=== PATIENT | female | born 1965 | race Caucasian/White ===

== ENCOUNTER 2022-09-21 08:15 | Day surgery (SDC) | payer MEDICARE, MEDICAID ==
[~2022-09-21] VITALS: Ht 152.4 cm; Wt 114.8 kg
[~2022-09-21 08:15] MED LIST: CINA60TA PO; ERGO500014 PO; FOLI0.4T6 PO; LEVO50TA8 PO; LORA-512 PO; MULT1TAB71 PO; SEVE800T8 PO
[2022-09-21] MEDS ORDERED: normal saline 1000ml 1,000 ML IV PRN (08:45)
[2022-09-21] MEDS ORDERED: midazolam 1 mg/ML 2ml injection ONE ×2 (08:57→11:05)
[2022-09-21] MEDS ORDERED: fentaNYL/PF 50MCG/1 ML 2ML syringe ONE ×2 (08:57→11:05)
[2022-09-21] MEDS ORDERED: iohexol 300mg/ml 100ml inj. ONE ×2 (08:58→09:52)
[2022-09-21 09:18] LABS: BASOPHILS % (AUTO) 0.6 % (0-1); EOSINOPHILS # (AUTO) 0.1 X10'3 (0-0.9); EOSINOPHILS % (AUTO) 2.4 % (0-6); HEMATOCRIT 32.8 % (35.0-45.0); HEMOGLOBIN 10.9 g/dl (12.0-16.0); LYMPHOCYTES # (AUTO) 1.4 X10'3 (1.1-4.8); LYMPHOCYTES % (AUTO) 40.6 % (21-51); MEAN CORPUSCULAR HEMOGLOBIN 30.7 PG (27.0-31.0); MEAN CORPUSCULAR HGB CONC 33.3 g/dL (33.0-36.5); MEAN CORPUSCULAR VOLUME 92.3 FL (78-98); MEAN PLATELET VOLUME 7.4 FL (7.4-10.4); MONOCYTES # (AUTO) 0.3 X10'3 (0-0.9); MONOCYTES % (AUTO) 7.8 % (2-12); NEUTROPHILS # (AUTO) 1.7 X10'3 (1.8-7.7); NEUTROPHILS % (AUTO) 48.6 % (42-75); PLATELET COUNT 79 X10'3 (140-440); RED BLOOD COUNT 3.55 X10'6 (4.20-5.60); RED CELL DISTRIBUTION WIDTH 16.9 % (11.5-14.5); WHITE BLOOD COUNT 3.4 X10'3 (4.5-11.0)
[2022-09-21 09:22] VITALS: BP 104/48
[2022-09-21 09:22] LABS: ALBUMIN 3.5 G/DL (3.4-5.0); ANION GAP 15 (8-16); BLOOD UREA NITROGEN 58 MG/DL (7-18); BUN/CREATININE RATIO 5.1 (10.0-20.0); CALCIUM 9.4 MG/DL (8.5-10.1); CHLORIDE 98 MMOL/L (99-107); CREATININE 11.35 MG/DL (0.40-0.90); GLUCOSE 192 MG/DL (70-104); POTASSIUM 4.2 MMOL/L (3.5-5.1); SODIUM 139 MMOL/L (135-145); TOTAL CARBON DIOXIDE 25.8 MMOL/L (24-32); eGFR 3 ML/MIN
[2022-09-21] MEDS ORDERED: FOLI1TAB27 PO (09:42)
[2022-09-21] MEDS ORDERED: FERR210T PO (09:42)
[2022-09-21] MEDS ORDERED: LEVO75TA7 PO (09:42)
[2022-09-21] MEDS ORDERED: LORA10TA7 PO (09:42)
[2022-09-21] MEDS ORDERED: OMEP40CA21 PO (09:42)
[2022-09-21] MEDS ORDERED: FLUT16SP26 BOTHNARES (09:42)
[2022-09-21] MEDS ORDERED: heparin 1,000 UNITS/NS 500ml 500 ML ONE (09:52)
[2022-09-21 11:28] VITALS: BP 121/66
[2022-09-21 12:08] VITALS: BP 111/68
== END 2022-09-21 12:35 | disposition home or self-care (01) ==
LOC: SSTAY O 08:15
PROVIDERS: ATTEND Radiology Diagnostic Radiology
DX: T82.858A Stenosis of other vascular prosthetic devices, implants and grafts, initial encounter (principal); N18.6 End stage renal disease; Z88.0 Allergy status to penicillin; Z88.8 Allergy status to other drugs, medicaments and biological substances; Z79.899 Other long term (current) drug therapy; Y83.2 Surgical operation with anastomosis, bypass or graft as the cause of abnormal reaction of the patient, or of later complication, without mention of misadventure at the time of the procedure; Y92.89 Other specified places as the place of occurrence of the external cause
CPT/HCPCS: 36415; 36902; 80048; 85025; 85610; 99152; 99153; C1769; J1644; J2250; J3010; J7030; Q9967; A4620; C1725; C1894

== ENCOUNTER 2024-04-06 06:14 | Day surgery (SDC) | payer MEDICARE, MEDICAID ==
[2024-04-03 16:41] LABS: APTT 27 SECONDS (22-32); INR 1.1 INR; PROTHROMBIN TIME 11.4 SECONDS (9.0-12.0)
[2024-04-03 16:43] LABS: ALANINE AMINOTRANSFERASE 21 U/L (12-78); ALBUMIN 3.1 G/DL (3.4-5.0); ALBUMIN/GLOBULIN RATIO 0.8 (1.1-1.5); ALKALINE PHOSPHATASE 136 IU/L (46-116); ANION GAP 8 (8-16); ASPARTATE AMINO TRANSFERASE 19 U/L (10-37); BILIRUBIN,TOTAL 0.6 MG/DL (0.1-1.0); BLOOD UREA NITROGEN 30 MG/DL (7-18); BUN/CREATININE RATIO 4.8 (10.0-20.0); CALCIUM 9.7 MG/DL (8.5-10.1); CHLORIDE 100 MMOL/L (99-107); CREATININE 6.22 MG/DL (0.40-0.90); GLUCOSE 302 MG/DL (70-104); POTASSIUM 3.5 MMOL/L (3.5-5.1); SODIUM 138 MMOL/L (135-145); TOTAL CARBON DIOXIDE 29.6 MMOL/L (24-32); TOTAL PROTEIN 7.1 G/DL (6.4-8.2); eGFR 7 ML/MIN
[2024-04-03 16:44] LABS: BASOPHILS % (AUTO) 0.9 % (0-1); EOSINOPHILS # (AUTO) 0.1 X10'3 (0-0.9); EOSINOPHILS % (AUTO) 2.3 % (0-6); HEMATOCRIT 33.6 % (35.0-45.0); HEMOGLOBIN 11.1 g/dl (12.0-16.0); LYMPHOCYTES % (AUTO) 36.9 % (21-51); MEAN CORPUSCULAR HEMOGLOBIN 30.8 PG (27.0-31.0); MEAN CORPUSCULAR HGB CONC 33.2 g/dL (33.0-36.5); MEAN CORPUSCULAR VOLUME 92.6 FL (78-98); MEAN PLATELET VOLUME 7.3 FL (7.4-10.4); MONOCYTES # (AUTO) 0.2 X10'3 (0-0.9); MONOCYTES % (AUTO) 8.9 % (2-12); NEUTROPHILS # (AUTO) 1.4 X10'3 (1.8-7.7); PLATELET COUNT 67 X10'3 (140-440); RED BLOOD COUNT 3.62 X10'6 (4.20-5.60); WHITE BLOOD COUNT 2.7 X10'3 (4.5-11.0)
[2024-04-03 17:00] LABS: BILIRUBIN,URINE NEGATIVE (Neg); CLARITY,URINE CLEAR (Clear); COLOR,URINE YELLOW (Yellow); GLUCOSE, URINE >=1000 mg/dl (Neg); KETONES,URINE NEGATIVE (Neg); LEUKOCYTE ESTERASE ,URINE NEGATIVE (Neg); NITRITES, URINE NEGATIVE (Neg); OCCULT BLOOD,URINE TRACE-LYSED (Neg); PH,URINE 8.5 (4.8-8.0); PROTEIN,URINE 30 mg/dl (Neg); UROBILINOGEN,URINE 0.2 E.U/dL (0.2-1.0)
[2024-04-03 17:07] LABS: UA COLLECTION TYPE NON-SPECIFIED
[2024-04-03 17:08] LABS: SQUAMOUS EPITHELIAL CELL,UR MODERATE /LPF (FEW); WBC,URINE NONE SEEN /HPF (0-4)
[2024-04-03 17:09] LABS: BACTERIA,URINE FEW /HPF (Neg); RBC,URINE 0-2 /HPF (0-2)
[2024-04-03 17:15] LABS: TOTAL CELLS COUNTED 100
[2024-04-03 17:16] LABS: ANISOCYTOSIS 1+; PLATELET ESTIMATE DECREASED
[~2024-04-06] VITALS: Ht 152.4 cm; Wt 109.2 kg
[2024-04-06] VITALS (28 sets, daily range): BP systolic 100–134; BP diastolic 44–86; PULSE 67–113; RESP 12–23; TEMP 98.4; O2SAT 4–100
[2024-04-06] MEDS: normal saline 1000ml 1,000 ML IV SCH (05:30)
[2024-04-06] MEDS: clindamycin-Cleocin 900mg/D5W 50 ML IV ONE (05:30)
[~2024-04-06 06:14] MED LIST changes: -CINA60TA PO; -ERGO500014 PO; +FLUT16SP26 BOTHNARES; -FOLI0.4T6 PO; +FOLI1TAB27 PO; -LEVO50TA8 PO; +LEVO75TA7 PO; -LORA-512 PO; +LORA10TA7 PO; -MULT1TAB71 PO; +OMEP40CA21 PO; -SEVE800T8 PO
[2024-04-06] MEDS ORDERED: BUPIVAcaine 2.5mg/ml inj 50ml vial (contains preservative) ONE (06:38)
[2024-04-06] MEDS: famotidine 20mg tablet PO ONE (06:59)
[2024-04-06 07:04] LABS: ISTAT CREATININE 3.9 mg/dL (0.6-1.1); ISTAT HGB 16.3 g/dl (12.0-16.0); ISTAT IONIZED CALCIUM 1.16 mmol/L (1.03-1.32); ISTAT K 3.8 mmol/L (3.5-5.1); POC BUN/CREATININE RATIO 3.3 (6.6-38.0)
[2024-04-06] MEDS ORDERED: AURYXIA PO (07:13)
[2024-04-06] MEDS ORDERED: BUPIVACAINE liposomal/PF 13.3 MG/ML 10mL vial IM ONE (07:57)
[2024-04-06] MEDS ORDERED: morphine 2 MG/ML inj. syringe IV PRN (08:00)
[2024-04-06] MEDS ORDERED: HYDROmorphone/PF 0.2 MG/ML SYRINGE IV PRN (08:00)
[2024-04-06] MEDS ORDERED: proCHLORperazine 10 MG/2 ml inj IV PRN (08:00)
[2024-04-06] MEDS ORDERED: ondansetron/PF 4mg/2ml inj IV PRN (08:00)
[2024-04-06] MEDS: ringers solution, lacted 1,000 ML IV SCH (08:00)
[2024-04-06] MEDS ORDERED: hydrALAZINE 20mg/ml inj. IV PRN (08:00)
[2024-04-06] MEDS ORDERED: labetalol 20mg/4ml (5mg/ml) syringe IV PRN (08:00)
[2024-04-06] MEDS ORDERED: sevoflurane 250ml liquid IH ONE (08:16)
[2024-04-06] MEDS ORDERED: BUPIVAcaine/PF 2.5mg/ml (0.25%) 10ml vial ONE (08:19)
[2024-04-06] MEDS ORDERED: fentaNYL/PF 50MCG/1 ML 2ML syringe ONE (08:20)
[2024-04-06] MEDS ORDERED: midazolam 1 mg/ML 2ml injection ONE (08:22)
[2024-04-06] MEDS ORDERED: rocuronium 10mg/ml inj IV ONE ×2 (08:47)
[2024-04-06] MEDS ORDERED: propofol inj 20 ML IV ONE (08:47)
[2024-04-06] MEDS ORDERED: LIDOcaine 2% (20mg/ml) 5ml vial ONE (08:47)
[2024-04-06] MEDS ORDERED: dexamethasone sod phosphate 4mg/ml inj. ONE (08:48)
[2024-04-06] MEDS ORDERED: ondansetron/PF 4mg/2ml inj ONE (08:48)
[2024-04-06] MEDS ORDERED: neostigmine methylsulfate 1 MG/ML 10ml vial ONE (09:59)
[2024-04-06] MEDS ORDERED: glycopyrrolate 0.2mg/ml inj ONE (09:59)
[2024-04-06] MEDS: BUPIVAcaine 2.5mg/ml inj 50ml vial (contains preservative) SQ ONE (09:59)
[2024-04-06] MEDS: morphine 4 MG/ML inj SYRINge IV PRN (10:22)
[2024-04-06] MEDS: acetaminophen 1,000mg/100ml IV 100 ML IV ONE (10:22)
[2024-04-06] MEDS: HYDROmorphone/PF 0.2 MG/ML SYRINGE IV PRN (11:05)
[2024-04-06] MEDS: HYDROcodone/acetaminophen 10/325mg tab PO ONE (12:07)
== END 2024-04-06 15:26 | disposition home or self-care (01) ==
LOC: PAS 06:14
PROVIDERS: ATTEND Surgery
DX: K43.2 Incisional hernia without obstruction or gangrene (principal); N18.6 End stage renal disease; G89.18 Other acute postprocedural pain; Z90.49 Acquired absence of other specified parts of digestive tract; Z90.710 Acquired absence of both cervix and uterus; Z98.890 Other specified postprocedural states; Z79.01 Long term (current) use of anticoagulants; Z79.899 Other long term (current) drug therapy; Z88.8 Allergy status to other drugs, medicaments and biological substances
CPT/HCPCS: 36415; 49615; 64488; 71046; 80047; 80053; 81001; 82948; 85025; 85610; 85730; 86885; 86900; 86901; A4215; A4615; A4618; C1781; J0131; J0666; J1100; J1171; J2003; J2250; J2270; J2405; J2704; J2710; J3010; J3490; J7030; J7040; J7120; Z7506; Z7508; Z7512; Z7610; 85007